=== PATIENT | female | born 1995 | race American Indian/Alaskan Native ===

== ENCOUNTER 2017-07-07 22:43 | Emergency (ER) | payer SELFPAY ==
--- NOTE | 2017-07-08 00:46 | Emergency Department Report ---
Minor Respiratory - HPI Chief Complaint: Earache Stated Complaint: RIGHT EAR PAIN Time Seen by Provider: 07/07/17 22:52 Duration: 2 Days Pain Location: Ear (right ear) Severity: moderate (5/10) Minor Respiratory: Yes Rhinorrhea (physical congestion), Yes Able to Tolerate Fluids, Yes Ear Pain (right ear), Yes Cough (occasional cough), No Sore Throat, No Sick Contacts, No Hemoptysis, No Chest Pain, No Shortness of Breath, No Fever Other History: Patient here reports that her right ear has been painful over the last 2 days. She also reports nasal congestion and runny nose. She reports dry cough worse with laying down. No [id number] medication taken. Denies any nausea or vomiting. Denies any shortness of breath or chest pain. Denies any fever or chills. Immunizations up-to-date per patient. Denies any drainage from ear. Denies any trauma to right ear. Pain is worse with eating and cough. No alleviating factors ED Review of Systems ROS: Stated complaint: RIGHT EAR PAIN Other details as noted in HPI Comment: All other systems reviewed and negative Constitutional: no symptoms reported Eyes: denies: eye pain, eye discharge ENT: ear pain, congestion. denies: throat pain, dental pain, hearing loss, epistaxis Respiratory: cough. denies: orthopnea, shortness of breath, SOB with exertion, SOB at rest, stridor, wheezing Cardiovascular: denies: chest pain, palpitations, dyspnea on exertion, edema, syncope, paroxysmal nocturnal dyspnea Gastrointestinal: denies: nausea, vomiting Musculoskeletal: denies: back pain, joint swelling, arthralgia, myalgia Skin: denies: rash Neurological: denies: headache, numbness, paresthesias, confusion, abnormal gait , vertigo ED Past Medical Hx - Past Medical History Previous Medical History?: No - Surgical History Past Surgical History?: No - Family History Family history: no significant - Social History Smoking Status: Never Smoker Substance Use Type: None - Medications Home Medications: Home Medications Medication Instructions Recorded Confirmed Last Taken Type Azithromycin [Zithromax Z-BLANCA] 250 mg PO DAILY 5 Days #1 pkg 07/08/17 Unknown Rx Cetirizine HCl [ZyrTEC] 10 mg PO QAM 14 Days #14 capsule 07/08/17 Unknown Rx Fluticasone [Flonase] 1 spray NS QDAY 14 Days #1 bottle 07/08/17 Unknown Rx Neomy/Polymyx B/Hc (Otic) Soln 4 drops OTIC TID 7 Days #1 bottle 07/08/17 Unknown Rx [Cortisporin (Otic) Soln] Minor Respiratory Exam - Exam General: Vital signs noted. No distress. Alert and acting appropriately. This is a 22-year-old female well-nourished well-developed in no acute distress. HEENT: Yes Moist Mucous Membranes, Yes Rhinorrhea (congestion without erythema. Clear nasal drainage), No Pharyngeal Erythema, No Pharyngeal Exudates, No Conjuctival Injection, No Frontal Tenderness, No Maxillary Tenderness Ear: Right TM Erythema (bilateral TM congested with right TM erythema), Right EAC Pain (Tenderness to ear with palpation of right tragus), Neither TM Bulge, Neither EAC Discharge Neck: Yes Adenopathy, Yes Supple (no C-spine tenderness. Full range of motion) Lungs: Yes Good Air Exchange, Yes Cough (dry cough), No Wheezes, No Ronchi, No Stridor, No Labored Respirations, No Retractions, No Use of Accessory Muscles, No Other Abnormal Lung Sounds Heart: Yes Regular (S1, S2.), No Murmur Abdomen: Yes Normal Bowel Sounds (in all quadrants), No Tenderness (nontender to palpate in all quadrants. No CVA tenderness.), No Peritoneal Signs Skin: No Rash, No Edema Neurologic: Alert and oriented 3, no deficits. Musculoskeletal: Unremarkable. Musculoskeletal/extremity: +5 strength in all extremities, no clubbing, cyanosis or edema. +2 pulses to all extremities. No neurovascular compromise ED Course Vital Signs 07/07/17 22:46 Temperature 98.4 F Pulse Rate 98 H Respiratory 18 Rate Blood Pressure 146/98 O2 Sat by Pulse 100 Oximetry - Reevaluation(s) Reevaluation #1: 07/08/17 01:34 She is stable throughout ED stay ED Medical Decision Making - Medical Decision Making ED course: She is here complaining and off right ear pain with upper respiratory symptoms. Physical findings for right otitis media, upper respiratory tract infection with cough and congestion. Diagnosis and treatment plan explained to patient and she voiced understanding. Patient does not have a primary care physician . I discussed that she'll need to follow up at the outside [facility] in 3-5 days. Patient discharged home in stable condition with prescription for Zyrtec, Flonase, Corticosporin optic solution and Z-Blanca as patient is allergic to amoxicillin. Critical care attestation.: If time is entered above; I have spent that time in minutes in the direct care of this critically ill patient, excluding procedure time. ED Disposition Clinical Impression: URI with cough and congestion, Otalgia of right ear Otitis media of right ear Qualifiers: Otitis media type: unspecified Qualified Code(s): H66.91 - Otitis media, unspecified, right ear Otitis externa of right ear Qualifiers: Otitis externa type: unspecified type Chronicity: acute Qualified Code(s): H60.501 - Unspecified acute noninfective otitis externa, right ear Disposition: TO HOME OR SELFCARE Is pt being admited?: No Does the pt Need Aspirin: No Condition: Stable Instructions: Otitis Media (ED), Upper Respiratory Infection (ED), Otitis Externa (ED) Additional Instructions: follow-up with [facility] in 3-5 days Please antibiotic and other medication as prescribed Increase her fluid intake You have an infection also in rt ear canal and will need to use antibiotic ear drops as instructed. Prescriptions: Azithromycin [Zithromax Z-BLANCA] 250 mg PO DAILY 5 Days #1 pkg Cetirizine HCl [ZyrTEC] 10 mg PO QAM 14 Days #14 capsule Fluticasone [Flonase] 1 spray NS QDAY 14 Days #1 bottle Neomy/Polymyx B/Hc (Otic) Soln [Cortisporin (Otic) Soln] 4 drops OTIC TID 7 Days #1 bottle Referrals: [facility] [Outside] - 3-5 Days Forms: Work/School Release Form(ED)
[2017-07-08 02:38] VITALS: BP 142/92
== END 2017-07-08 02:38 | disposition home or self-care (01) ==
LOC: ED 22:43
DX: H66.91 Otitis media, unspecified, right ear (principal); H60.501 Unspecified acute noninfective otitis externa, right ear; J06.9 Acute upper respiratory infection, unspecified; Z88.1 Allergy status to other antibiotic agents
CPT/HCPCS: 99282